=== PATIENT | female | born 1955 | race Caucasian/White ===

== ENCOUNTER 2020-06-30 13:10 | Inpatient (IN) ==
[2020-06-30] MEDS ORDERED: DEXTROSE 50% 25 GM/50 ML VIAL IV PRN (16:28)
[2020-06-30] MEDS ORDERED: GLUCAGON 1 MG VIAL IM PRN (16:28)
[2020-06-30] MEDS ORDERED: HEPARIN DRIP 25,000 UNITS/500 ML PREMIX IV SCH (16:30)
[2020-06-30] MEDS ORDERED: MORPHINE 4 MG/1 ML VIAL IV PRN (16:31)
[2020-06-30 17:22] LABS: Risk Ratio 2.83; VLDL CHOLESTEROL 14.4 MG/DL
[2020-06-30 17:33] LABS: High Sensitive Troponin I* 11628.2 ng/L (0-54)
[2020-06-30] MEDS ORDERED: METOPROLOL TARTRATE 25 MG TABLET PO ONE (17:45)
[2020-06-30] MEDS ORDERED: ASPIRIN CHEW 81 MG TABLET PO ONE (17:47)
[2020-06-30] MEDS: NITROGLYCERIN 2% OINT 1 INCH/GM PACK TOP SCH ×2 (18:09→21:34)
[2020-06-30] MEDS: ENOXAPARIN 120 MG/0.8 ML SYRINGE SUBCUT SCH (18:09)
[2020-06-30] MEDS: INSULIN LISPRO 100 UNIT/ML SUBCUT SCH (18:10)
[2020-06-30] MEDS: FUROSEMIDE 40 MG/4 ML VIAL IV SCH (18:11)
[2020-06-30] MEDS: METOPROLOL TARTRATE 25 MG TABLET PO SCH (21:34)
[2020-06-30] MEDS: ATORVASTATIN 40 MG TABLET PO SCH (21:34)
[2020-06-30] MEDS: carvediloL 6.25 MG TABLET PO SCH (21:34)
[2020-07-01] MEDS: INSULIN LISPRO 100 UNIT/ML SUBCUT SCH ×4 (00:32→21:21)
[2020-07-01] MEDS: NITROGLYCERIN 2% OINT 1 INCH/GM PACK TOP SCH ×5 (00:33→13:15)
[2020-07-01 06:53] LABS: CKMB % 6.5 %
[2020-07-01 07:13] LABS: Basophils # 0.1 10*3/uL (0.0-0.2); Basophils % 0.8 % (0.0-0.8); Eosinophils % 0.4 % (0.00-10.9); Hematocrit 34.8 VOL% (35.7-47.0); Hemoglobin 10.3 GM/DL (12.0-16.0); Immature Granulocytes % 0.7 %; Immature Granulocytes Absolute 0.07 #; Lymphocytes # 1.5 10*3/uL (1.4-4.0); Lymphocytes % 15.4 % (21.3-54.2); Mean Corpuscular HGB Conc 29.6 GM/DL (32-36); Mean Corpuscular Volume 84.7 FL (87-102); Mean Platelet Volume 12.6 FL (9.6-12.0); Monocytes % 12.6 % (1.7-12.7); Neutrophils % 70.1 % (38.7-73.9); Platelet Count 206 T/CUMM (130-400); Red Blood Count 4.11 MC/CUMM (3.8-5.5); Red Cell Distribution Width 16.7 % (9.3-17.3); White Blood Count 9.6 T/CUMM (4-12)
[2020-07-01] MEDS: ENOXAPARIN 120 MG/0.8 ML SYRINGE SUBCUT SCH ×2 (07:19→18:28)
[2020-07-01 07:23] LABS: PT Patient Result 11.5 SECS (10.5-12.0)
[2020-07-01 07:24] LABS: High Sensitive Troponin I* 22247.5 ng/L (0-54)
[2020-07-01 07:27] LABS: Calcium 9.4 MG/DL (8.5-10.1); Osmolality,Calculated 296.3 MOS/KG (273-304); Potassium 4.6 MMOL/L (3.5-5.1)
[2020-07-01] MEDS ORDERED: ASPIRIN 325 MG TABLET PO SCH (09:00)
[2020-07-01] MEDS: METOPROLOL TARTRATE 25 MG TABLET PO SCH (09:08)
[2020-07-01] MEDS: ASPIRIN EC 81 MG TABLET PO SCH (09:08)
[2020-07-01] MEDS: carvediloL 6.25 MG TABLET PO SCH (09:08)
[2020-07-01] MEDS: FUROSEMIDE 40 MG/4 ML VIAL IV SCH (09:08)
[2020-07-01] MEDS ORDERED: DEXTROSE 50% 25 GM/50 ML VIAL IV PRN (09:25)
[2020-07-01] MEDS ORDERED: GLUCAGON 1 MG VIAL IM PRN (09:25)
[2020-07-01 09:43] LABS: Calcium 9.1 MG/DL (8.5-10.1); Osmolality,Calculated 296.3 MOS/KG (273-304); Potassium 4.4 MMOL/L (3.5-5.1)
[2020-07-01 12:13] LABS: CKMB % 6.2 %; High Sensitive Troponin I* 16609.2 ng/L (0-54)
[2020-07-01] MEDS ORDERED: POTASSIUM CHLORIDE RIDER 10 MEQ in PREMIX 1 EACH IV PRN (14:10)
[2020-07-01] MEDS ORDERED: MAGNESIUM SULF RIDER 2 GM/50 ML PREMIX IV PRN (14:10)
[2020-07-01] MEDS ORDERED: INSULIN REGULAR 100 UNIT/ML IV ONE ×2 (14:18→23:59)
[2020-07-01] MEDS ORDERED: INSULIN LISPRO 100 UNIT/ML SUBCUT ONE (14:30)
[2020-07-01] MEDS ORDERED: MIDAZOLAM 2 MG/2 ML VIAL ONE (16:43)
[2020-07-01] MEDS ORDERED: HEPARIN/NACL 0.9% 2 UNITS/ML 2,000 UNIT/1,000 ML BAG IV ONE (16:43)
[2020-07-01] MEDS ORDERED: LIDOCAINE 1%/EPI INJ 20 ML VIAL ONE (16:43)
[2020-07-01] MEDS ORDERED: fentaNYL 100 MCG/2 ML VIAL ONE (16:43)
[2020-07-01] MEDS ORDERED: ENOXAPARIN 60 MG/0.6 ML SYRINGE ONE (17:09)
[2020-07-01 17:18] VITALS: BP 109/52
[2020-07-01] MEDS ORDERED: TIROFIBAN 5,000 MCG/100 ML PREMIX IV ONE (17:18)
[2020-07-01] MEDS ORDERED: TIROFIBAN 5,000 MCG/100 ML PREMIX IV SCH (17:18)
[2020-07-01] MEDS ORDERED: TICAGRELOR 90 MG TABLET ONE (17:28)
[2020-07-01] MEDS ORDERED: NITROGLYCERIN SL 0.4 MG TABLET SL PRN (17:47)
[2020-07-01] MEDS ORDERED: HYDROmorphone 2 MG/1 ML VIAL IV PRN (17:47)
[2020-07-01] MEDS ORDERED: FUROSEMIDE 40 MG/4 ML VIAL IV ONE (17:49)
[2020-07-01] MEDS ORDERED: SODIUM CHLORIDE 0.45% 1,000 ML IV SCH (18:30)
[2020-07-01 19:00] LABS: CKMB % 6.1 %; High Sensitive Troponin I* 12792.4 ng/L (0-54)
[2020-07-01] MEDS: ONDANSETRON 4 MG/2 ML VIAL IV PRN (20:15)
[2020-07-01] MEDS: ATORVASTATIN 40 MG TABLET PO SCH (21:21)
[2020-07-01] MEDS: TICAGRELOR 90 MG TABLET PO SCH (21:21)
[2020-07-02] MEDS ORDERED: SODIUM CHLORIDE 0.45% 1,000 ML IV SCH (02:00)
[2020-07-02 05:02] LABS: Basophils % 0.3 % (0.0-0.8); Hematocrit 33.8 VOL% (35.7-47.0); Immature Granulocytes % 1.2 %; Immature Granulocytes Absolute 0.17 #; Mean Corpuscular HGB Conc 29.6 GM/DL (32-36); Mean Corpuscular Volume 87.8 FL (87-102); Mean Platelet Volume 12.5 FL (9.6-12.0); Monocytes % 12.6 % (1.7-12.7); Neutrophils % 78.9 % (38.7-73.9); Platelet Count 230 T/CUMM (130-400); Red Blood Count 3.85 MC/CUMM (3.8-5.5); White Blood Count 13.9 T/CUMM (4-12)
[2020-07-02 05:12] LABS: Hypochromasia Slight; Microcytosis Slight
[2020-07-02 05:13] LABS: Calcium 8.5 MG/DL (8.5-10.1); Platelet Estimate Adequate
[2020-07-02] MEDS: ONDANSETRON 4 MG/2 ML VIAL IV PRN (05:31)
[2020-07-02] MEDS ORDERED: DIAZEPAM 5 MG TABLET PO ONE (07:00)
[2020-07-02] MEDS ORDERED: diphenhydrAMINE CAP 50 MG CAPSULE PO ONE (07:00)
[2020-07-02] MEDS: TICAGRELOR 90 MG TABLET PO SCH ×2 (08:10→20:31)
[2020-07-02] MEDS: INSULIN LISPRO 100 UNIT/ML SUBCUT SCH ×4 (08:10→20:31)
[2020-07-02] MEDS: ASPIRIN EC 81 MG TABLET PO SCH (08:10)
[2020-07-02] MEDS: PANTOPRAZOLE 40 MG TABLET PO SCH (08:10)
[2020-07-02] MEDS: FUROSEMIDE 40 MG/4 ML VIAL IV SCH (08:10)
[2020-07-02] MEDS ORDERED: LACTATED RINGERS 1,000 ML IV SCH (08:27)
[2020-07-02] MEDS: LACTATED RINGERS 1,000 ML IV SCH (20:30)
[2020-07-02] MEDS: ATORVASTATIN 40 MG TABLET PO SCH (20:31)
[2020-07-03] MEDS: ONDANSETRON 4 MG/2 ML VIAL IV PRN ×2 (03:20→08:36)
[2020-07-03 05:24] LABS: Basophils # 0.1 10*3/uL (0.0-0.2); Basophils % 0.4 % (0.0-0.8); Eosinophils % 0.3 % (0.00-10.9); Hematocrit 33.3 VOL% (35.7-47.0); Hemoglobin 10.2 GM/DL (12.0-16.0); Immature Granulocytes % 1.1 %; Immature Granulocytes Absolute 0.15 #; Lymphocytes # 0.7 10*3/uL (1.4-4.0); Lymphocytes % 5.6 % (21.3-54.2); Mean Corpuscular HGB Conc 30.6 GM/DL (32-36); Mean Corpuscular Volume 83.3 FL (87-102); Monocytes % 13.8 % (1.7-12.7); Neutrophils % 78.8 % (38.7-73.9); Platelet Count 264 T/CUMM (130-400); Red Cell Distribution Width 16.9 % (9.3-17.3); White Blood Count 13.1 T/CUMM (4-12)
[2020-07-03] MEDS: LACTATED RINGERS 1,000 ML IV SCH ×2 (05:39→19:00)
[2020-07-03 05:52] LABS: Calcium 8.5 MG/DL (8.5-10.1); Osmolality,Calculated 300.2 MOS/KG (273-304); Potassium 5.4 MMOL/L (3.5-5.1)
[2020-07-03] MEDS ORDERED: DOPamine 800 MG/250 ML PREMIX IV PRN (07:37)
[2020-07-03] MEDS: PANTOPRAZOLE 40 MG TABLET PO SCH (08:35)
[2020-07-03] MEDS: ASPIRIN EC 81 MG TABLET PO SCH (08:35)
[2020-07-03] MEDS: INSULIN LISPRO 100 UNIT/ML SUBCUT SCH ×4 (08:35→21:10)
[2020-07-03] MEDS: TICAGRELOR 90 MG TABLET PO SCH ×2 (08:35→21:10)
[2020-07-03] MEDS: DOCUSATE SODIUM 100 MG CAPSULE PO SCH (08:37)
[2020-07-03] MEDS: CETIRIZINE 10 MG TABLET PO SCH (08:37)
[2020-07-03] MEDS: INSULIN ASPART PROTAMINE/ASPART 70/30 100 UNIT/ML SUBCUT SCH ×2 (09:51→21:11)
[2020-07-03] MEDS ORDERED: MAGNESIUM SULF RIDER 1 GM/100 ML PREMIX IV ONE (10:55)
[2020-07-03] MEDS ORDERED: SODIUM CHLORIDE 0.9% 500 ML IV ONE (11:14)
[2020-07-03] MEDS ORDERED: SODIUM BICARBONATE 50 MEQ/50 ML VIAL IV ONE (11:31)
[2020-07-03 14:59] LABS: Calcium 8.3 MG/DL (8.5-10.1)
[2020-07-03] MEDS: ATORVASTATIN 40 MG TABLET PO SCH (21:10)
[2020-07-04] MEDS: LACTATED RINGERS 1,000 ML IV SCH ×3 (03:13→18:09)
[2020-07-04 05:41] LABS: Basophils # 0.1 10*3/uL (0.0-0.2); Basophils % 0.7 % (0.0-0.8); Eosinophils # 0.2 10*3/uL (0.0-0.87); Eosinophils % 1.7 % (0.00-10.9); Hematocrit 32.8 VOL% (35.7-47.0); Hemoglobin 10.5 GM/DL (12.0-16.0); Immature Granulocytes % 1.1 %; Immature Granulocytes Absolute 0.13 #; Lymphocytes # 1.1 10*3/uL (1.4-4.0); Lymphocytes % 9.8 % (21.3-54.2); Mean Corpuscular Volume 81.8 FL (87-102); Mean Platelet Volume 12.2 FL (9.6-12.0); Monocytes % 15.2 % (1.7-12.7); Neutrophils % 71.5 % (38.7-73.9); Platelet Count 277 T/CUMM (130-400); Red Blood Count 4.01 MC/CUMM (3.8-5.5); Red Cell Distribution Width 17.2 % (9.3-17.3); White Blood Count 11.4 T/CUMM (4-12)
[2020-07-04 05:56] LABS: Calcium 8.4 MG/DL (8.5-10.1); Osmolality,Calculated 296.5 MOS/KG (273-304); Potassium 4.5 MMOL/L (3.5-5.1)
[2020-07-04] MEDS: LEVOTHYROXINE 100 MCG TABLET PO SCH (06:06)
[2020-07-04] MEDS: INSULIN LISPRO 100 UNIT/ML SUBCUT SCH ×4 (07:20→20:45)
[2020-07-04] MEDS: CETIRIZINE 10 MG TABLET PO SCH (08:41)
[2020-07-04] MEDS: TICAGRELOR 90 MG TABLET PO SCH ×2 (08:41→20:45)
[2020-07-04] MEDS: DOCUSATE SODIUM 100 MG CAPSULE PO SCH (08:42)
[2020-07-04] MEDS: PANTOPRAZOLE 40 MG TABLET PO SCH (08:42)
[2020-07-04] MEDS: ASPIRIN EC 81 MG TABLET PO SCH (08:42)
[2020-07-04] MEDS: INSULIN ASPART PROTAMINE/ASPART 70/30 100 UNIT/ML SUBCUT SCH ×2 (09:04→16:51)
[2020-07-04] MEDS: METOPROLOL TARTRATE 25 MG TABLET PO SCH ×2 (10:34→20:45)
[2020-07-04] MEDS: ATORVASTATIN 40 MG TABLET PO SCH (20:45)
[2020-07-05] MEDS: LACTATED RINGERS 1,000 ML IV SCH ×2 (04:39→09:48)
[2020-07-05 06:12] LABS: Basophils # 0.1 10*3/uL (0.0-0.2); Basophils % 0.9 % (0.0-0.8); Eosinophils # 0.2 10*3/uL (0.0-0.87); Eosinophils % 2.2 % (0.00-10.9); Hematocrit 34.1 VOL% (35.7-47.0); Hemoglobin 10.6 GM/DL (12.0-16.0); Immature Granulocytes % 1.3 %; Immature Granulocytes Absolute 0.11 #; Lymphocytes # 0.8 10*3/uL (1.4-4.0); Lymphocytes % 9.5 % (21.3-54.2); Mean Corpuscular HGB Conc 31.1 GM/DL (32-36); Mean Corpuscular Volume 82.2 FL (87-102); Mean Platelet Volume 12.2 FL (9.6-12.0); Monocytes % 16.3 % (1.7-12.7); Neutrophils % 69.8 % (38.7-73.9); Platelet Count 249 T/CUMM (130-400); Red Blood Count 4.15 MC/CUMM (3.8-5.5); Red Cell Distribution Width 17.3 % (9.3-17.3); White Blood Count 8.6 T/CUMM (4-12)
[2020-07-05] MEDS: LEVOTHYROXINE 100 MCG TABLET PO SCH (06:20)
[2020-07-05 06:26] LABS: Calcium 8.4 MG/DL (8.5-10.1); Osmolality,Calculated 295.8 MOS/KG (273-304)
[2020-07-05 06:40] LABS: Eosinophils 3 % (0-10); Lymphocytes 7 % (20-55); Platelet Estimate Adequate; Segmented Neutrophils 76 % (50-85); Total Cells Counted 100
[2020-07-05] MEDS: ASPIRIN EC 81 MG TABLET PO SCH (08:56)
[2020-07-05] MEDS: INSULIN ASPART PROTAMINE/ASPART 70/30 100 UNIT/ML SUBCUT SCH ×2 (08:56→18:02)
[2020-07-05] MEDS: INSULIN LISPRO 100 UNIT/ML SUBCUT SCH ×4 (08:56→20:14)
[2020-07-05] MEDS: PANTOPRAZOLE 40 MG TABLET PO SCH (08:57)
[2020-07-05] MEDS: DOCUSATE SODIUM 100 MG CAPSULE PO SCH (08:57)
[2020-07-05] MEDS: TICAGRELOR 90 MG TABLET PO SCH ×2 (08:57→20:14)
[2020-07-05] MEDS: METOPROLOL TARTRATE 50 MG TABLET PO SCH ×2 (08:57→20:14)
[2020-07-05] MEDS: CETIRIZINE 10 MG TABLET PO SCH (08:57)
[2020-07-05] MEDS: ATORVASTATIN 40 MG TABLET PO SCH (20:14)
[2020-07-06 05:54] LABS: Basophils # 0.1 10*3/uL (0.0-0.2); Basophils % 0.6 % (0.0-0.8); Eosinophils # 0.1 10*3/uL (0.0-0.87); Eosinophils % 1.5 % (0.00-10.9); Hematocrit 35.3 VOL% (35.7-47.0); Hemoglobin 10.7 GM/DL (12.0-16.0); Immature Granulocytes % 1.4 %; Immature Granulocytes Absolute 0.12 #; Lymphocytes # 0.7 10*3/uL (1.4-4.0); Lymphocytes % 8.4 % (21.3-54.2); Mean Corpuscular HGB Conc 30.3 GM/DL (32-36); Mean Corpuscular Volume 83.5 FL (87-102); Mean Platelet Volume 12.1 FL (9.6-12.0); Monocytes % 17.1 % (1.7-12.7); Platelet Count 242 T/CUMM (130-400); Red Blood Count 4.23 MC/CUMM (3.8-5.5); Red Cell Distribution Width 17.7 % (9.3-17.3); White Blood Count 8.4 T/CUMM (4-12)
[2020-07-06 06:15] LABS: Calcium 8.5 MG/DL (8.5-10.1); Osmolality,Calculated 290.3 MOS/KG (273-304); Potassium 3.7 MMOL/L (3.5-5.1)
[2020-07-06] MEDS: LEVOTHYROXINE 100 MCG TABLET PO SCH (06:25)
[2020-07-06 06:48] LABS: Band Neutrophils 5 % (0-10); Eosinophils 3 % (0-10); Lymphocytes 9 % (20-55); Platelet Estimate Normal; Segmented Neutrophils 66 % (50-85); Total Cells Counted 100
[2020-07-06 06:49] LABS: Anisocytosis 1+; Macrocytosis Slight; Ovalocytes Few
[2020-07-06] MEDS ORDERED: FUROSEMIDE 40 MG/4 ML VIAL IV ONE (08:10)
[2020-07-06] MEDS: INSULIN ASPART PROTAMINE/ASPART 70/30 100 UNIT/ML SUBCUT SCH (08:59)
[2020-07-06] MEDS: ASPIRIN EC 81 MG TABLET PO SCH (09:00)
[2020-07-06] MEDS: METOPROLOL TARTRATE 50 MG TABLET PO SCH (09:01)
[2020-07-06] MEDS: DOCUSATE SODIUM 100 MG CAPSULE PO SCH (09:01)
[2020-07-06] MEDS: TICAGRELOR 90 MG TABLET PO SCH (09:01)
[2020-07-06] MEDS: PANTOPRAZOLE 40 MG TABLET PO SCH (09:01)
[2020-07-06] MEDS: CETIRIZINE 10 MG TABLET PO SCH (09:01)
[2020-07-06] MEDS: INSULIN LISPRO 100 UNIT/ML SUBCUT SCH ×2 (09:09→11:58)
== END 2020-07-06 15:10 | disposition swing bed (61) | DRG 246 ==
LOC: N.TELEN → SUATTDRO 14:44 → N.CC 07-01 18:02
PROVIDERS: ADMIT Internal Medicine; ATTEND Internal Medicine
PROC: CLCCHCL (ICD-10-PCS; 2020-07-01 17:15)